=== PATIENT | female | born 1950 | race Caucasian/White ===

== ENCOUNTER → 2016-10-04 | Outpatient (CLI) | payer OTHER ==
--- NOTE | 2016-10-04 12:36 | MAMMOGRAPHY REPORT ---
BILATERAL DIGITAL SCREENING MAMMOGRAM WITH CAD: 10/04/2016 CLINICAL HISTORY: Routine screening. Patient has no complaints. TECHNIQUE: Current study was also evaluated with a Computer Aided Detection (CAD) system. Bilatera l CC and MLO views were obtained. COMPARISON: Comparison is made to exams dated: 05/06/2015 mammogram, 08/24/2014 mammogram, 08/12/2014 mammogram, 08/10/2013 mammogram, 08/08/2012 mammogram, and 08/06/2011 mammogram - [facility]. BREAST COMPOSITION: There are scattered areas of fibroglandular density in both breasts. FINDINGS: No suspicious masses, calcifications, or areas of architectural distortion are noted in e ither breast. There has been no significant interval change compared to prior exams. Small benign-a ppearing mass in the left 12:00 breast is stable compared to multiple prior exams dating back to at least 2006. Scattered bilateral benign-appearing calcifications are not significantly changed. IMPRESSION: ACR BI-RADS CATEGORY 2: BENIGN There is no mammographic evidence of malignancy. A 1 year screening mammogram is recommended. The p atient will receive written notification of the results. Approximately 10% of breast cancers are not detected with mammography. A negative mammographic repor t should not delay biopsy if a clinically suggestive mass is present. Jina Garcia M.D. /:10/04/2016 07:57:31 Paint Grinder: Esther Gao, [facility] letter sent: Normal 1/2 BI-RADS Code: ACR BI-RADS Category 2: Benign
== END | disposition home or self-care (01) ==
LOC: C.MAMM 07:32
PROVIDERS: ATTEND Obstetrics & Gynecology
DX: Z12.31 Encounter for screening mammogram for malignant neoplasm of breast (principal)

== ENCOUNTER 2017-05-28 18:50 | Emergency (ER) | payer OTHER ==
[~2017-05-28] VITALS: Ht 154.9 cm; Wt 70.6 kg
[2017-05-28 19:13] VITALS: TEMP 37; Ht 154.9 cm; Wt 70.6 kg
[2017-05-28] MEDS ORDERED: GI COCKTAIL PO STA (20:43)
--- NOTE | 2017-05-28 20:45 | EMERGENCY ROOM VISIT NOTE ---
History Report prepared by Cipriano: Jair Lyons Under the Supervision of: Dr. Dragan Scanlon M.D. First contact with patient: 20:32 Chief Complaint: ALLERGIC REACTION Stated Complaint: THROAT SWELLING- POSSIBLE ALLERGIC REACTION Nursing Triage Summary: Patient ate chicken wrap at [facility] snack bar. States the sandwich was spicy. Ate two bites and mouth felt on fire and lips feel swollen. Denies trouble breathing. History of Present Illness The patient is a 66 year old female who presents to the Emergency Room with complaints of a resolved allergic reaction beginning prior to arrival. The patient states that she was eating dinner with her upstairs. She reports that she was eating a chicken wrap with grilled peppers and onions. The patient notes that when she opened her food, it smelled very spicy. She states that when she took a bite, her sinuses immediately 'broke'. The patient reports that she finished eating half of the wrap, and then she could not eat anymore. She notes that 45 minutes after eating, she felt a golf ball in her throat, and her lips began to swell. The patient states that her symptoms are still there, but they are not as severe as before. She reports that when she talks a lot, she becomes short of breath. The patient denies rashes, vomiting, and edema to her legs. Source of History: patient Onset: prior to arrival Position: throat Quality: other (allergic reaction) Timing: resolved Associated Symptoms: + SOB, No vomiting, No rash Note: Associated symptoms: lip edema, golf ball in her throat Review of Systems See HPI for pertinent positives & negatives. A total of 10 systems reviewed and were otherwise negative. Past Medical & Surgical Medical Problems: (1) No Known Active Medical Problems Family History Patient reports no known family medical history. Social History Smoking Status: Never Smoker Marital Status: Housing Status: lives with significant other Current/Historical Medications No Active Prescriptions or Reported Meds Allergies Coded Allergies: No Known Allergies (Unverified , 05/28/17) Physical Exam Vital Signs Date Time Temp Pulse Resp B/P (MAP) Pulse Ox O2 Delivery O2 Flow Rate FiO2 05/28/17 21:31 65 18 151/91 96 05/28/17 21:05 65 18 151/91 96 Room Air 05/28/17 20:58 97 Room Air 05/28/17 19:15 97 Room Air 9/5/17 19:13 37.0 74 16 122/81 98 Room Air Physical Exam GENERAL: Patient is well appearing and in no acute distress. HEENT: No acute trauma, normocephalic atraumatic, mucous membranes moist, no nasal congestion, no scleral icterus. Mild erythema to the posterior oropharynx. NECK: No stridor, no adenopathy, no meningismus, trachea is midline. LUNGS: No dyspnea. Clear to auscultation and equal bilaterally. No wheeze, no rhonchi. HEART: Regular rate and rhythm. No murmurs, rubs, gallops appreciated. ABDOMEN: Soft, nontender, bowel sounds positive, no masses appreciated, no peritonitis. BACK: No midline tenderness, no CVA tenderness EXTREMITIES: Normal motion all extremities, no cyanosis, no edema. NEUROLOGIC: Alert and oriented, no acute motor or sensory deficits, no focal weakness, cranial nerves grossly intact. SKIN: No rash, no jaundice, no diaphoresis. Medical Decision & Procedures Medications Administered Medications (Trade) Dose Ordered Sig/Mason Route Start Time Stop Time Status Last Admin Dose Admin Miscellaneous Medication (Gi Cocktail) 24 ml NOW STAT PO 05/28/17 20:43 05/28/17 20:44 DC 05/28/17 20:43 24 ML Diphenhydramine HCl (Benadryl Syrup) 25 mg NOW ONCE PO 05/28/17 20:45 05/28/17 20:46 DC 05/28/17 20:45 25 MG Lidocaine HCl (Viscous Lidocaine 2% Soln) 20 ml STK-MED ONCE .ROUTE 05/28/17 20:46 05/28/17 20:47 DC 05/28/17 20:46 20 ML Al Hydroxide/Mg Hydroxide (Maalox Susp) 30 ml STK-MED ONCE .ROUTE 05/28/17 20:46 05/28/17 20:47 DC 05/28/17 20:46 30 ML ED Course 2032: The patient was evaluated in room C07. A complete history and physical exam was performed. 2042: Ordered GI Cocktail 24ml PO 2044: Ordered Benadryl Syrup 25mg PO 2045: Ordered Maalox Susp 30ml .ROUTE, Lidocaine HCl 20ml .ROUTE 2114: Reevaluated the patient. Discussed results and discharge instructions: she verbalized understanding and agreement. The patient is ready for discharge. Medical Decision 66 yr old female with globus sensation after eating very spicy chicken wrap. No concern for foreign body. Tolerating secretions. Slowly improving though gicocktail/benadryl minimally helpful. No indication for imaging. Localized and I do not feel that prednisone indicated. Suspect this is irritation as opposed to actual allergic reaction. She is stable, breathing comforatbly, tolerating secreations, has no swelling and is in no distress. Reviewed symptoms RTED and foods to avoid. Impression Primary Impression: Esophageal Irritation Additional Impression: Globus sensation Scribe Attestation The scribe's documentation has been prepared under my direction and personally reviewed by me in its entirety. I confirm that the note above accurately reflects all work, treatment, procedures, and medical decision making performed by me. Departure Information Dispostion Home / Self-Care Prescriptions No Active Prescriptions or Reported Meds Referrals No Doctor, Assigned (PCP) Forms HOME CARE DOCUMENTATION FORM, IMPORTANT VISIT INFORMATION Patient Instructions My [facility] Additional Instructions Avoid spicy foods, tomato based foods and any hard foods. Keep to bland diet over the next few days. Return if worsening pain, inability to swallow, or other concerns. Problem Qualifiers
[2017-05-28] MEDS ORDERED: ALUMINUM/MAGNESIUM SUSP 30 ML UDC ONE (20:46)
[2017-05-28] MEDS ORDERED: LIDOCAINE HCL 2% VISC SOLN 20 ML UDC ONE (20:46)
[2017-05-28 21:31] VITALS: BP 151/91; PULSE 65; O2SAT 96
== END 2017-05-28 21:33 | disposition home or self-care (01) ==
LOC: C.EDB 18:52 → C.EDC 21:33
DX: K20.9 Esophagitis, unspecified (principal); F45.8 Other somatoform disorders

== ENCOUNTER → 2017-10-07 | Outpatient (CLI) | payer OTHER ==
--- NOTE | 2017-10-07 14:46 | MAMMOGRAPHY REPORT ---
BILATERAL DIGITAL SCREENING MAMMOGRAM TOMOSYNTHESIS WITH CAD: 10/07/2017 CLINICAL HISTORY: Routine screening. Patient has no complaints. TECHNIQUE: Breast tomosynthesis in addition to standard 2D mammography was performed. Current study was also evaluated with a Computer Aided Detection (CAD) system. COMPARISON: Comparison is made to exams dated: 10/04/2016 mammogram, 10/03/2015 mammogram, 05/06/2015 m ammogram, 08/24/2014 mammogram, 08/12/2014 mammogram, and 08/10/2013 mammogram - [facility]. BREAST COMPOSITION: There are scattered areas of fibroglandular density in both breasts. FINDINGS: There are possible grouped microcalcifications in the anterior subareolar left breast, for which additional spot magnification views are recommended. No other suspicious mass, architectural distortion or cluster of microcalcifications is seen. IMPRESSION: ACR BI-RADS CATEGORY 0: INCOMPLETE EVALUATION: NEED ADDITIONAL IMAGING EVALUATION The possible grouped microcalcifications in the subareolar left breast need additional evaluation. The patient will be called to schedule an appointment. Approximately 10% of breast cancers are not detected with mammography. A negative mammographic report should not delay biopsy if a clinically suggestive mass is present. Azra Troncoso M.D. ay/:10/07/2017 08:23:30 Shale Planer Operator: Lizet GARZON)(Fred), [facility] letter sent: Addl Imaging 0 BI-RADS Code: ACR BI-RADS Category 0: Incomplete Evaluation: Need Additional Imaging Evaluation
== END | disposition home or self-care (01) ==
LOC: C.MAMM 07:28
PROVIDERS: ATTEND Obstetrics & Gynecology
DX: Z12.31 Encounter for screening mammogram for malignant neoplasm of breast (principal)

== ENCOUNTER → 2017-10-10 | Outpatient (CLI) | payer OTHER ==
--- NOTE | 2017-10-10 15:54 | MAMMOGRAPHY REPORT ---
UNILATERAL LEFT DIGITAL DIAGNOSTIC MAMMOGRAM: 10/10/2017 CLINICAL HISTORY: Callback from screening mammogram for left breast calcifications. TECHNIQUE: Spot magnification left CC and ML views were obtained. COMPARISON: Comparison is made to exams dated: 10/04/2016 mammogram, 10/07/2017 mammogram, 10/03/2015 m ammogram, 05/06/2015 mammogram, 08/12/2014 mammogram, and 08/10/2013 mammogram - [facility]. BREAST COMPOSITION: There are scattered areas of fibroglandular density in the left breast. FINDINGS: Spot magnification views of the left breast demonstrate loosely grouped faint, predominantl y punctate, calcifications within the left subareolar breast. When compared to prior exams, the calc ifications do not appear significantly changed compared to the 2008 exam when accounting for technica l differences. Given the probable long-term stability and punctate morphology, the calcifications ar e probably benign. IMPRESSION: ACR-BI-RADS CATEGORY 3: PROBABLY BENIGN Loosely grouped punctate calcifications within the left subareolar breast are likely stable dating ba ck to the 2007 exam and are probably benign. Recommend follow-up diagnostic mammograms of the left b reast in 6 months to confirm stability on spot magnification views. The patient has been verbally notified of the results. Approximately 10% of breast cancers are not detected with mammography. A negative mammographic report should not delay biopsy if a clinically suggestive mass is present. Jina Garcia M.D. /:10/10/2017 10:22:03 Drapery And Upholstery Estimator: Lizet GARZON)(Fred), [facility] letter sent: Follow Up Recommended 3 BI-RADS Code: ACR-BI-RADS Category 3: Probably Benign
== END | disposition home or self-care (01) ==
LOC: C.MAMM 09:42
PROVIDERS: ATTEND Obstetrics & Gynecology
DX: R92.0 Mammographic microcalcification found on diagnostic imaging of breast (principal); R92.1 Mammographic calcification found on diagnostic imaging of breast

== ENCOUNTER → 2018-04-30 | Outpatient (CLI) | payer OTHER ==
--- NOTE | 2018-04-30 13:37 | MAMMOGRAPHY REPORT ---
UNILATERAL LEFT DIGITAL DIAGNOSTIC MAMMOGRAM TOMOSYNTHESIS WITH CAD: 04/30/2018 CLINICAL HISTORY: Short interval follow-up of left breast calcifications. TECHNIQUE: The study was acquired using full field digital technology and interpreted from soft copy. Breast tomosynthesis in addition to standard 2D mammography was performed. Current study was also ev aluated with a Computer Aided Detection (CAD) system. Left CC and MLO 2D and tomosynthesis images an d spot magnification left CC and ML views were obtained. COMPARISON: Comparison is made to exams dated: 10/10/2017 mammogram, 10/07/2017 mammogram, 10/04/2016 m ammogram, 10/03/2015 mammogram, 05/06/2015 mammogram, and 08/12/2014 mammogram - [facility]. BREAST COMPOSITION: There are scattered areas of fibroglandular density in left breast. FINDINGS: Spot magnification views of the left breast again demonstrate loosely grouped faint, predominantly pu nctate, calcifications within the left subareolar breast. The calcifications are stable on spot magn ification views dated 10/10/2017, and in retrospect are not significantly changed dating back to the 2 008 exam. Given the benign morphology and long-term stability, the calcifications are considered wisam ign. The remainder of the left breast is stable compared to prior exams, without suspicious masses, calcifications, or areas of architectural distortion noted. Nodular asymmetry in the left lateral br east on the cc view is stable compared to multiple prior exams. Other asymmetries are also stable. IMPRESSION: ACR BI-RADS CATEGORY 2: BENIGN Loosely grouped punctate calcifications in the left subareolar breast are stable dating back to the 2 008 exam and are considered benign given long-term stability. There is no mammographic evidence of m alignancy in the left breast. Return to annual mammogram screening schedule is recommended, due 2018. The patient has been verbally notified of the results. Some breast cancers are not detected with mammography. A negative mammographic report should not bird y biopsy if a clinically suggestive mass is present. Jina Garcia M.D. /:04/30/2018 12:46:07 Aprn: RT Chu(R)(M), [facility] letter sent: Normal 1/2 BI-RADS Code: ACR BI-RADS Category 2: Benign
== END | disposition home or self-care (01) ==
LOC: C.MAMM 08:55
PROVIDERS: ATTEND Internal Medicine
DX: R92.1 Mammographic calcification found on diagnostic imaging of breast (principal)